=== PATIENT | male | born 1985 | race Two or more races ===

== ENCOUNTER 2019-12-08 16:43 | Emergency (ER) | payer SELFPAY ==
[~2019-12-08] VITALS: Ht 170.2 cm; Wt 97.7 kg
[2019-12-08] MEDS ORDERED: AZIT250T6 PO (17:04)
--- NOTE | 2019-12-08 17:06 | PHYS DOC ---
Adult General Chief Complaint Chief Complaint: FEVER [facility] HPI Patient is a 34 year old male who presents with fever, body aches, and shortness of breath. Denies n,v but has diarrhea. He has traveled from [place] and came to on November 21. He was sent over from urgent care after he had negative flu but abnormal chest x-ray. 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 Complete ROS were reviewed and found to be within normal limits, except as documented in the HPI (HAO HANNA APRN) Allergies Allergies Allergies Coded Allergies Type Severity Reaction Last Updated Verified No Known Drug Allergies 12/08/19 No (FRANKO ROMAN DO) Physical Exam Physical Exam Constitutional: Well developed, well nourished, no acute distress, non-toxic appearance. [] HENT: Normocephalic, atraumatic, bilateral external ears normal, oropharynx moist, no oral exudates, nose normal. [] Neurologic: Alert and oriented X 3, normal motor function, normal sensory function, no focal deficits noted. [] Psychologic: Affect normal, judgement normal, mood normal. [] (HAO HANNA APRN) Current Patient Data Vital Signs Vital Signs Date Time Temp Pulse Resp B/P (MAP) Pulse Ox O2 Delivery O2 Flow Rate FiO2 12/08/19 17:10 100.4 107 18 130/75 (93) 94 Room Air 100.4 (FRANKO ROMAN DO) EKG EKG [] (HAO HANNA APRN) Radiology/Procedures Radiology/Procedures [] (HAO HANNA APRN) Course & Med Decision Making Course & Med Decision Making Pertinent Labs and Imaging studies reviewed. (See chart for details) Chest x-ray was done at urgent care which did show some possible pneumonia. Urgent care sent patient to the ER out of concern the patient has coronavirus. The patient is clinically stable and does not appear to need admission at this time. Flu was negative at urgent care. Will discharge patient home have put under self-isolation. Patient had discussed with him that he needs to return to the ER if he becomes increasingly short of breath. (HAO HANNA APRN) Dragon Disclaimer Dragon Disclaimer This electronic medical record was generated, in whole or in part, using a voice recognition dictation system. (HAO HANNA APRN) Attending Signature I have participated in the care of this patient and I have reviewed and agree with all pertinent clinical information above including history, exam, and recommendations. (FRANKO ROMAN DO) Departure Departure Impression: Primary Impression: Pneumonia Additional Impression: Suspected 2019 novel coronavirus infection Disposition: 01 HOME, SELF-CARE Condition: STABLE Patient Instructions: Pneumonia, Adult Additional Instructions: Thank you for visiting [facility]. We appreciate you trusting us with your care. If any additional problems come up don't hesitate to return to visit us. Please follow up with your primary care provider so they can plan additional care if needed and know about the problem that you had. If symptoms worsen come back to the Emergency Department. Any concerning symptoms that start such as chest pain, shortness of air, weakness or numbness on one side of the body, running high fevers or any other concerning symptoms return to the ER. You have a viral syndrome which may include symptoms like muscle aches, fevers, chills, runny nose, cough, sneezing, sore throat, vomiting, or diarrhea. One of the potential viruses that you may have is SARS-CoV-2, the virus that causes COVID-19, also known as the Coronavirus. You are just as likely to have a different viral infection such as the common cold, flu, etc. Most patients with the Coronavirus have mild symptoms and recover on their own. Resting, staying hydrated, and sleep from known cases can be helpful. As of todays visit, you are well enough to go home and treat your symptoms with oral fluids and over the counter medications. Coronavirus testing is not performed on most people with mild symptoms who are being discharged from the emergency department. If Coronavirus testing was performed the results will not be available for possibly up to 2-3 days. If your result is positive you will be contacted. Please follow the following precautions at home: 1) Stay home except to get medical care. 2) As advised by the CDC we recommend you stay in your home and minimize contact with other people. We do not want you to spread the infection. 3) Those who are older or have significant medical issues may have more severe symptoms from this infection. We recommend self-isolation,FOR AT LEAST 7 DAYS after your 1st day of symptoms. AFTER you feel better please wait AT LEAST ANOTHER WEEK before returning to regular activities and being around other people! 4) IF you become sicker and have difficulty breathing, chest pain, unable to eat/drink, severe vomiting, diarrhea, or weakness you may need to return to the Emergency Department. 5) You should restrict activities outside your home, except for getting medical care. DO NOT go to work, school, or public areas. Avoid using public transportation, ride sharing, or taxis. 6) Separate yourself from other people in your home. You should use a separate bathroom if possible. 7) Avoid sharing personal household items such as dishes, cups, eating utensils, towels, etc. 8) Clean all high touch surfaces every day (door knobs, counter tops, etc). Use a household cleaning spray or wipe per label instructions. 9) Clean your hands often. Wash your hands with soap and water for at least 20 seconds. 10) Cover your mouth and nose with a tissue when you cough or sneeze. 11) Throw used tissues in a trash can and immediately wash your hands. For additional resources please visit the CDC website or the [facility] ([phone]). Scripts Azithromycin (AZITHROMYCIN TABLET) 250 Mg Tablet 1 PKG PO UD for 5 Days, #6 TAB 0 Refills 2 the first day followed by 1 for days 2-5 Prov: HAO HANNA APRN 12/08/19 Problem Qualifiers Primary Impression: Pneumonia Pneumonia type: due to unspecified organism Laterality: unspecified laterality Lung location: unspecified part of lung Qualified Codes: J18.9 - Pneumonia, unspecified organism HAO HANNA APRN Dec 08, 2019 17:06 FRANKO ROMAN DO Dec 08, 2019 17:40
[2019-12-08 17:10] VITALS: BP 130/75
== END 2019-12-08 17:49 | disposition home or self-care (01) ==
LOC: ER 16:43
DX: J18.9 Pneumonia, unspecified organism (principal); R50.9 Fever, unspecified; R06.03 Acute respiratory distress; R19.7 Diarrhea, unspecified; Z03.818 Encounter for observation for suspected exposure to other biological agents ruled out
CPT/HCPCS: 99283